=== PATIENT | male | born 1945 ===

== ENCOUNTER → 2017-11-28 | Outpatient (REF) | payer MEDICARE ==
[~2017-11-28] MED LIST: ACE3 PO; ACET-3017 PO; ACYC-50 PO; ALB6.7R INH; ALBU0.636 IH; ALBU2.5V36 IH; ALBU2.5V44 IH; ALBU8.5H IH; ALLO-118 PO; ASPI-719 PO; ATOR10TA65 PO; AZIT500T45 PO; BENZ100C4 PO; CALC-500 PO; CALC-515 PO; CEPH500T7 PO; CHOL200021 PO; DIGO125T73 PO; DILT120C PO; DILT360C24 PO; DOCU-416 PO; DOXY-229 PO; ESOM40CA42 PO; FLU IM ONLY; FLU100 PO; FLUINH INH; FLUNR ENA; FLUTR; FOL1 PO; FORM12CA IH; FURO40TA35 PO; GEMF600T91 PO; GUAI600T57 PO; HYDR-67 PO; HYDR10TA3 PO; LACT1CAP4 PO; LACT1CAP6 PO; LACT1CAP9 PO; LEV15R INH; LEVA1.2527 IH; LIDO700A29 TD; LISI-1 PO; LOP2 PO; LOR1 PO; LORA-1456 PO; MAG-65 PO; META800T18 PO; METAMUCIL FIBE1 EACH PO; METXL50 PO; MOM PO; MULT-820 PO; MV C PO; MYLL PO; NICO-218 TD; NIT4 SL; OND8 PO; OXYC-827 PO; PHEN30SP NS; POLY119P24 PO; POLY17PO25 PO; POTA-28 PO; PRAV20TA65 PO; PRE5 PO; PRED-1 PO; PRED20TA6 PO; PSYL0.5241 PO; PSYL3.4P2 PO; RIVA20TA PO; ROSU20TA23 PO; SENN-192 PO; SIMV-1 PO; SUC1 PO; SUCR1TAB85 PO; WARF-1 PO; [UNRECOGNIZED DRUG - CODE] PO; [UNRECOGNIZED DRUG - OTHER] IH; oxygen INH
[2017-11-28 11:58] LABS: INR 1.8
== END ==
LOC: ZZHOSPICE 11:28
PROVIDERS: ATTEND Internal Medicine
DX: Z51.81 Encounter for therapeutic drug level monitoring (principal); Z79.01 Long term (current) use of anticoagulants
CPT/HCPCS: 85610